=== PATIENT | male | born 2000 | race Caucasian/White ===

== ENCOUNTER 2022-05-19 10:08 | Outpatient (REF) | payer OTHER, SELFPAY ==
[2022-05-19 10:26] LABS: MANUAL DIFF FLAG NO
[2022-05-19 10:54] LABS: Basophils Percent Auto 0.7 % (0-2); Eosinophils Absolute Auto 0.2 X10*3/uL (0.0-0.4); Eosinophils Percent Auto 3.8 % (0-4); Hematocrit 45.1 % (42.0-52.0); Hemoglobin 15.2 g/dl (14.0-18.0); Imm Gran Abs Auto 0.03 X10*3/uL (0.00-0.03); Imm Gran Pct Auto 0.5 % (0.0-0.4); Lymphocytes Absolute Auto 1.9 X10*3/uL (1.2-4.9); Mean Corpuscular HGB Conc 33.7 g/dl (31.0-36.0); Mean Corpuscular Hemoglobin 28.9 pg (27.0-33.0); Mean Corpuscular Volume 85.7 fL (80.0-98.0); Mean Platelet Volume 9.5 fL (9.4-12.4); Monocytes Absolute Auto 0.5 X10*3/uL (0.1-1.2); Monocytes Percent Auto 7.6 % (2-11); Neutrophils Absolute Auto 3.4 x10*3/uL (2.0-8.3); Neutrophils Percent Auto 56.4 % (45-73); Platelet Count 294 X10*3/uL (160-400); Red Blood Count 5.26 X10*6/uL (4.60-5.80); Red Cell Distribution Width 12.2 % (11.0-16.0); White Blood Count 6.1 X10*3/uL (4.8-10.8)
[2022-05-19 11:56] LABS: Alanine Aminotransferase 16 U/L (0-40); Albumin Level 4.5 g/dL (3.5-5.0); Alkaline Phosphatase 73 U/L (39-117); Anion Gap 14 (12-20); Aspartate Amino Transferase 18 U/L (5-37); Bilirubin Direct 0.3 mg/dL (0.0-0.5); Blood Urea Nitrogen 13 mg/dL (9-16); Calcium 9.7 mg/dL (8.4-10.2); Carbon Dioxide 29 mmol/L (22-29); Chloride 103 mmol/L (96-108); Cholesterol 150 mg/dL; Estimated Glomerular Filt Rate > 60; Glucose Fasting 89 mg/dL (60-99); HDL Cholesterol 49 mg/dL; LDL Cholesterol Calculated 84 mg/dl; Potassium 4.8 mmol/L (3.3-5.1); Sodium 141 mmol/L (135-145); Total Protein 7.3 g/dL (6.5-8.0); Triglycerides 87 mg/dL
[2022-05-19 12:13] LABS: Cortisol Random 12.4 ug/dL
[2022-05-27 15:34] LABS: Testosterone, Free 96.2 pg/mL (35.0-155.0); Testosterone, Total 637 ng/dL (250-1100)
== END 2022-05-19 10:09 | disposition home or self-care (01) ==
LOC: HO.LAB 10:08
PROVIDERS: PCP Pediatrics; Visit Provider Urology
DX: R53.83 Other fatigue (principal)
CPT/HCPCS: 36415; 80048; 80061; 80076; 82533; 84402; 84403; 85025

== ENCOUNTER 2023-08-25 14:25 | Outpatient (AMB) | payer OTHER, SELFPAY ==
--- NOTE | 2023-08-25 14:28 | A.OFFPC_ITS ---
Vital Signs 08/25/23 14:36 Height 6 ft 6.74 in Weight 253 lb 4 oz BMI 28.7 BP 118/68 Blood Pressure Location Lt brachial Position Sitting Pulse 70 Pulse Source Pulse Oximeter Pulse Oximetry (%) 97 Oxygen Delivery Method Room Air Intake Visit Reasons: Establish care for ADHD Intake Note: Patient is a new patient here to establish care for ADHD. Transferring care from Dr. Ron Arita MD/[facility]. Medical records have been requested and received. Car Rental Clerk Required: No Accompanied by: Self / Same As Patient Allergies cats Allergy (Unknown, Uncoded 08/25/23 14:43) rash Medication List - Last Reconciled 08/25/23 by Raymundo Brar PA-C dextroamphetamine-amphetamine 20 mg ER 1 cap PO BID Tobacco use date assessed: 08/25/23 Dental Screening Dental Screen Date: 08/25/23 Did you have a dental visit in the last 12 months?: No Did you have a dental problem in the last 6 months where you did not have access to dental care?: No Was dental information given to patient?: Patient has dentist HPI Establish care for ADHD HPI Details Patient is a 23 year old male here today for a new patient visit. Patient has a past medical history significant for ADHD and has been treated with Adderall 20 mg b.i.d. for quite some time. He reports he does well on this medication is able to focus on work and school tasks. Going to school at [employer] and will be starting his senior year this fall 2023. Vaccines: Needs Tdap though declines at this time, up-to-date with COVID vaccines Labs reviewed from 2022 with patient and all were within normal range [facility] Medical History Attention deficit disorder of adult with hyperactivity Social History (Updated 08/25/23 @ 14:47 by Raymundo Brar PA-C) Housing: House Alcohol intake: current Alcohol intake frequency: a few times a month Alcohol type: beer Patient Tobacco Use Status: Never used Tobacco e-Cigarette/Vaping Use: Former Use service: No Current occupational status: student Cognitive needs: No Hearing needs: No Vision needs: No Questionnaire PHQ-9 Over the last 2 weeks, how often have you been bothered by any of the following problems? 1. Little interest or pleasure in doing things: not at all 2. Feeling down, depressed, or hopeless: not at all 3. Trouble falling or staying asleep, or sleeping too much: not at all 4. Feeling tired or having little energy: not at all 5. Poor appetite or overeating: not at all 6. Feeling bad about yourself - or that you are a failure or have let yourself or your family down: not at all 7. Trouble concentrating on things, such as reading the newspaper or watching television: not at all 8. Moving or speaking so slowly that other people could have noticed. Or the opposite - being so fidgety or restless that you have been moving around a lot more than usual: not at all 9. Thoughts that you would be better off or of hurting yourself in some way: not at all Total score: 0 Depression Screening Interpretation: Negative Depression Screening Done: Yes 47319 - PHQ-9 Billing: Yes Source: Developed by Drs. Timo Maya, Norma Conway, Satish Mccullough and colleagues, with an educational celine from [employer]. Thrive Questionnaire Date Thrive assessed: 08/25/23 I am a: Patient What is your living situation today?: I have a steady place to live Within the past 12 months, did the food you bought not last and you didn't have the money to get more?: Never true Within the past 12 months, did you worry whether your food would run out before you got money to buy more?: Never true Do you have trouble paying for medicines?: No Do you have trouble getting transportation to medical appointments?: No Do you have trouble paying your heating and electricity bill?: No Do you have trouble taking care of your child, family member or friend?: No Do you have trouble with day-to-day activities such as bathing, preparing meals, shopping, managing finances, etc.?: No Are you currently unemployed and looking for a job?: No Are you interested in more education?: No Please select the resources that you would like help with: None Currently or been in a relationship where the following occur: no concerns reported THRIVE Score: 0 AUDIT C Alcohol Use Questionnaire (AUDIT-C) 1. How often do you have a drink containing alcohol?: Monthly or less 2. How many drinks containing alcohol do you have on a typical day when you are drinking?: 3 or 4 3. How often do you have six or more drinks on one occasion?: Less than monthly Total Score: 3 CARL-7 AMB Questionnaire CARL-7 Date CARL - 7 assessed: 08/25/23 Feeling nervous, anxious, or on edge: 0 = Not at all Not being able to stop or control worryin = Not at all Worrying too much about different things: 0 = Not at all Trouble relaxin = Not at all Being so restless that it is hard to sit still: 0 = Not at all Becoming easily annoyed or irritable: 0 = Not at all Feeling afraid as if something awful might happen: 0 = Not at all Total CARL-7 score (0-4 normal; 5-9 mild; 10-14 moderate; 15-21 severe): 0 Source: Developed by Drs. Timo Maya, Norma Conway, Satish Mccullough and colleagues, with an educational celine from [employer]. CARL-7 Assessment Billing CARL-7 Assessment Tool: CARL-7 Assessment 01736 Review of Systems Const Denies headache(s) Eyes Denies loss of vision ENT Denies vertigo, Denies dizziness, Denies headache(s) and Denies sore throat Card Denies chest pain, Denies leg edema and Denies lightheadedness Resp Denies cough, Denies hemoptysis and Denies wheezing GI Denies abdominal pain, Denies melena, Denies constipation, Denies diarrhea and Denies vomiting Denies dysuria, Denies urinary frequency and Denies urinary urgency Musc Denies arthralgias, Denies joint swelling, Denies numbness and Denies tingling Neuro Denies Abnormal speech present, Denies behavioral changes, Denies vertigo, Denies dizziness, Denies headache(s), Denies loss of vision, Denies memory loss, Denies numbness and Denies tingling Psych Denies anxiety, Denies behavioral changes, Denies depression, Denies memory loss and Denies panic attacks Brant/Lymph Denies easy bleeding and Denies easy bruising Aller/Immun Denies wheezing Physical exam (Primary Care) Vital Signs: Last Vital Signs Pulse 70 08/25/23 14:36 BP 118/68 08/25/23 14:36 Pulse Ox 97 08/25/23 14:36 Oxygen Delivery Method Room Air 08/25/23 14:36 BMI result Body Mass Index 28.7 Tobacco/Smoking Status: Tobacco use Status Tobacco use date assessed 08/25/23 08/25/23 14:41 Patient Tobacco Use Status Never used Tobacco 08/25/23 14:47 e-Cigarette/Vaping Use Former Use 08/25/23 14:47 PHQ-9: PHQ-9 Score PHQ-9: Total score 0 08/25/23 14:48 Depression Screening Interpretation: Negative Thrive Assessment: Date of Thrive Assessment Date Thrive assessed 08/25/23 08/25/23 14:41 Currently or been in a relationship where the following occur: no concerns reported Const General: healthy appearing, no acute distress, alert and awake Nutritional Appearance: well nourished Orientation/consciousness: oriented to person, oriented to place and oriented to time HENMT Ears: TM's normal bilaterally General nose exam: Normal nasal mucous membranes and turbinates present Eyes Conjunctivae: conjunctivae normal Sclerae: sclerae normal Pupils: Equal, round and reactive pupils present Neck Neck: Yes no lymphadenopathy and Yes no JVD Thyroid: Thyroid normal Carotids: no bruits Resp Effort & Inspection: normal respiratory effort and not tachypneic Auscultation: no crackles, no rales, no rhonchi and no wheezes Cardio Rate: regular rate Rhythm: regular rhythm Heart sounds: no murmurs and normal S1 and S2 GI Palpation (GI): Soft to palpation, nontender, no hepatomegaly and no splenomegaly Auscultation: normal bowel sounds Skin General skin exam: no rashes or lesions noted and dry skin Neuro General: oriented to person, oriented to place and oriented to time Cranial nerves: Yes Equal, round and reactive pupils present Speech: No Abnormal speech present Gait exam (Neuro): Normal gait present Motor exam (neuro): no tremor noted Extrem Right upper extremity: full ROM Left upper extremity: full ROM Right lower extremity: full ROM; no edema Left lower extremity: full ROM; no edema Psych Mental Status: mental status grossly normal Speech and movement: Normal speech and movement present Affect: normal affect Attitude: cooperative Thought process: Normal thought process present Assessment and Plan Assessment & Plan (1) ADHD: Code(s): F90.9 - Attention-deficit hyperactivity disorder, unspecified type Qualifiers: Attention deficit-hyperactivity disorder type: predominantly inattentive Qualified Code(s): F90.0 - Attention-deficit hyperactivity disorder, predominantly inattentive type Plan: Patient diagnosed with ADHD is a child. Has been on Adderall with good effect for many years. Now in adult Medicine practice in needs PCP to manage his ADHD medication. He is going to be a senior at [employer] next year would like to continue medication (2) Screening for diabetes mellitus (DM): Code(s): Z13.1 - Encounter for screening for diabetes mellitus Orders: Orders Comprehensive [place]. Panel Fast Today Z13.1 - Encounter for screening for diabetes mellitus Medications: New dextroamphetamine-amphetamine 20 mg ER 1 cap PO BID 60 caps 0RF 30 days F90.0 - Attention-deficit hyperactivity disorder, predominantly inattentive type Coding Level of Care Code New Pt Level 4 (61969) Diagnoses Attention deficit hyperactivity disorder (ADHD), predominantly inattentive type F90.0 Attention deficit-hyperactivity disorder type: predominantly inattentive Screening for diabetes mellitus (DM) Z13.1 Additional Codes CARL-7 Assessment Billing - CARL-7 Assessment Tool: CARL-7 Assessment 22911 ([id number])
[2023-08-25 14:36] VITALS: BP 118/68; PULSE 70; O2SAT 97; BMI 28.7
== END 2023-08-25 14:57 | disposition home or self-care (01) ==
PROVIDERS: PCP Physician Assistant; Visit Provider Physician Assistant
DX: F90.0 Attention-deficit hyperactivity disorder, predominantly inattentive type (principal)
CPT/HCPCS: 99204

== ENCOUNTER 2023-11-03 15:01 | Outpatient (AMB) | payer OTHER, SELFPAY ==
--- NOTE | 2023-11-03 15:08 | MHC.PC.OV ---
Vital Signs 11/03/23 15:25 Height 6 ft 6.74 in Weight 256 lb 6 oz BMI 29.1 BP 114/62 Blood Pressure Location Lt brachial Position Sitting Pulse 64 Pulse Source Pulse Oximeter Pulse Oximetry (%) 96 Oxygen Delivery Method Room Air Intake Visit Reasons: 3 Month F/U Tetanus Shot Community Relations Coordinator Required: No Accompanied by: Self / Same As Patient Allergies cats Allergy (Unknown, Uncoded 11/03/23 15:28) rash Medication List - Last Reconciled 11/03/23 by Raymundo Brar PA-C dextroamphetamine-amphetamine 20 mg ER 1 cap PO BID 30 days Tobacco use date assessed: 08/25/23 Dental Screening Dental Screen Date: 08/25/23 HPI 3 Month F/U Tetanus Shot HPI Details Patient is a 23 year old male here today for a follow-up visit. Patient has a past medical history significant for ADHD and has been treated with Adderall 20 mg b.i.d. for quite some time. He reports he does well on this medication is able to focus on work and school tasks. Going to school at [employer] and will be starting his senior year this fall 2023. Vaccines: Needs Tdap , up-to-date with COVID vaccines [facility] Medical History Attention deficit disorder of adult with hyperactivity Social History Housing: House Alcohol intake: current Alcohol intake frequency: a few times a month Alcohol type: beer Patient Tobacco Use Status: Never used Tobacco e-Cigarette/Vaping Use: Former Use service: No Current occupational status: student Cognitive needs: No Hearing needs: No Vision needs: No Questionnaire Thrive Questionnaire Date Thrive assessed: 08/25/23 CARL-7 AMB Questionnaire CARL-7 Date CARL - 7 assessed: 08/25/23 Source: Developed by Drs. Timo Maya, Norma Conway, Satish Mccullough and colleagues, with an educational celine from [employer]. Review of Systems Const Denies headache(s) Eyes Denies loss of vision ENT Denies vertigo, Denies dizziness, Denies headache(s) and Denies sore throat Card Denies chest pain, Denies leg edema and Denies lightheadedness Resp Denies cough, Denies hemoptysis and Denies wheezing GI Denies abdominal pain, Denies melena, Denies constipation, Denies diarrhea and Denies vomiting Denies dysuria, Denies urinary frequency and Denies urinary urgency Musc Denies arthralgias, Denies joint swelling, Denies numbness and Denies tingling Neuro Denies Abnormal speech present, Denies behavioral changes, Denies vertigo, Denies dizziness, Denies headache(s), Denies loss of vision, Denies memory loss, Denies numbness and Denies tingling Psych Denies anxiety, Denies behavioral changes, Denies depression, Denies memory loss and Denies panic attacks Brant/Lymph Denies easy bleeding and Denies easy bruising Aller/Immun Denies wheezing Physical exam (Primary Care) Vital Signs: Last Vital Signs Pulse 64 11/03/23 15:25 BP 114/62 11/03/23 15:25 Pulse Ox 96 11/03/23 15:25 Oxygen Delivery Method Room Air 11/03/23 15:25 BMI result Body Mass Index 29.1 Tobacco/Smoking Status: Tobacco use Status Tobacco use date assessed 08/25/23 11/03/23 15:08 Patient Tobacco Use Status Never used Tobacco 11/03/23 15:08 e-Cigarette/Vaping Use Former Use 11/03/23 15:08 Thrive Assessment: Date of Thrive Assessment Date Thrive assessed 08/25/23 11/03/23 15:08 Const General: healthy appearing, no acute distress, alert and awake Nutritional Appearance: well nourished Orientation/consciousness: oriented to person, oriented to place and oriented to time HENVA Ears: TM's normal bilaterally General nose exam: Normal nasal mucous membranes and turbinates present Eyes Conjunctivae: conjunctivae normal Sclerae: sclerae normal Pupils: Equal, round and reactive pupils present Neck Neck: Yes no lymphadenopathy and Yes no JVD Thyroid: Thyroid normal Carotids: no bruits Resp Effort & Inspection: normal respiratory effort and not tachypneic Auscultation: no crackles, no rales, no rhonchi and no wheezes Cardio Rate: regular rate Rhythm: regular rhythm Heart sounds: no murmurs and normal S1 and S2 GI Palpation (GI): Soft to palpation, nontender, no hepatomegaly and no splenomegaly Auscultation: normal bowel sounds Skin General skin exam: no rashes or lesions noted and dry skin Neuro General: oriented to person, oriented to place and oriented to time Cranial nerves: Yes Equal, round and reactive pupils present Speech: No Abnormal speech present Gait exam (Neuro): Normal gait present Motor exam (neuro): no tremor noted Extrem Right upper extremity: full ROM Left upper extremity: full ROM Right lower extremity: full ROM; no edema Left lower extremity: full ROM; no edema Psych Mental Status: mental status grossly normal Speech and movement: Normal speech and movement present Affect: normal affect Attitude: cooperative Thought process: Normal thought process present Immunizations Boostrix Tdap 2.5 Lf unit-8 mcg-5 Lf/0.5 mL intramuscular syringe Performing Provider: Raymundo Brar PA-C Performing Location: [facility] Administered by: FREDDY Sethi on 11/03/23 15:37 Dose Route Admin Location Dispensed Lot Number Expiration Date NDC Historical Site Guide 0.5 mL IM Left Deltoid 0.5 mL [id number] 11/11/25 [id number] [employer] VIS Given Date VIS Provided VIS Publication Date 11/03/23 Single Vaccine 20 Eligibility Eligibility Date Funding Source Not VF Eligible 11/03/23 Private Assessment and Plan Assessment & Plan (1) ADHD: Code(s): F90.9 - Attention-deficit hyperactivity disorder, unspecified type Qualifiers: Attention deficit-hyperactivity disorder type: predominantly inattentive Qualified Code(s): F90.0 - Attention-deficit hyperactivity disorder, predominantly inattentive type Plan: Patient diagnosed with ADHD is a child. Has not executive functioning dysfunction. Has been on Adderall with good effect for many years. . He is going to be a senior at [employer] next year would like to continue medication Orders: Orders TDaP Immunization Today Z23 - Encounter for immunization Medications: Refilled dextroamphetamine-amphetamine 20 mg ER 1 cap PO BID 60 caps 0RF 30 days F90.0 - Attention-deficit hyperactivity disorder, predominantly inattentive type Coding Level of Care Code Est Pt Level 3 (58295) Diagnoses Attention deficit hyperactivity disorder (ADHD), predominantly inattentive type F90.0 Attention deficit-hyperactivity disorder type: predominantly inattentive
[2023-11-03 15:25] VITALS: BP 114/62; PULSE 64; O2SAT 96; BMI 29.1
== END 2023-11-03 15:39 | disposition home or self-care (01) ==
PROVIDERS: PCP Physician Assistant; Visit Provider Physician Assistant
DX: Z23 Encounter for immunization (principal); F90.0 Attention-deficit hyperactivity disorder, predominantly inattentive type
CPT/HCPCS: 90471; 90715; 99213

== ENCOUNTER 2024-02-06 15:14 | Outpatient (AMB) | payer OTHER, SELFPAY ==
--- NOTE | 2024-02-06 15:12 | A.OFFPC_ITS ---
Intake Visit Reasons: f/u ADHD (telehealth) Correctional Officer Sergeant Required: No Accompanied by: Self / Same As Patient Allergies cats Allergy (Unknown, Uncoded 02/06/24 15:18) rash Medication List - Last Reconciled 02/06/24 by Raymundo Brar PA-C dextroamphetamine-amphetamine 20 mg ER 1 cap PO BID 30 days Tobacco use date assessed: 08/25/23 Dental Screening Dental Screen Date: 08/25/23 HPI f/u ADHD (telehealth) HPI Details Patient is a 23-year-old male being evaluated today via telephone. Patient has a past medical history significant for ADHD and has been treated with Adderall 20 mg b.i.d. for quite some time. He reports he does well on this medication is able to focus on work and school tasks. He reports school is tough this semester as he is in his senior year. He has been having some anxiety [facility] Medical History Attention deficit disorder of adult with hyperactivity Social History Housing: House Alcohol intake: current Alcohol intake frequency: a few times a month Alcohol type: beer Patient Tobacco Use Status: Never used Tobacco e-Cigarette/Vaping Use: Former Use service: No Current occupational status: student Cognitive needs: No Hearing needs: No Vision needs: No Questionnaire Thrive Questionnaire Date Thrive assessed: 08/25/23 CARL-7 AMB Questionnaire CARL-7 Date CALR - 7 assessed: 08/25/23 Source: Developed by Drs. Timo Maya, Norma Conway, Satish Mccullough and colleagues, with an educational celine from [employer]. Review of Systems Const Denies headache(s) Eyes Denies loss of vision ENT Denies vertigo, Denies dizziness, Denies headache(s) and Denies sore throat Card Denies chest pain, Denies leg edema and Denies lightheadedness Resp Denies cough, Denies hemoptysis and Denies wheezing GI Denies abdominal pain, Denies melena, Denies constipation, Denies diarrhea and Denies vomiting Denies dysuria, Denies urinary frequency and Denies urinary urgency Musc Denies arthralgias, Denies joint swelling, Denies numbness and Denies tingling Neuro Denies behavioral changes, Denies vertigo, Denies dizziness, Denies headache(s), Denies loss of vision, Denies memory loss, Denies numbness and Denies tingling Psych Reports anxiety, Denies behavioral changes, Denies depression, Denies memory loss and Denies panic attacks Brant/Lymph Denies easy bleeding and Denies easy bruising Aller/Immun Denies wheezing Physical exam (Primary Care) Tobacco/Smoking Status: Tobacco use Status Tobacco use date assessed 08/25/23 02/06/24 15:14 Patient Tobacco Use Status Never used Tobacco 02/06/24 15:14 e-Cigarette/Vaping Use Former Use 02/06/24 15:14 Thrive Assessment: Date of Thrive Assessment Date Thrive assessed 08/25/23 02/06/24 15:14 Telehealth Telehealth Telehealth Platform: Telephone Location of provider rendering services: practice address Location of patient: address on file Patient Identification confirmed using: Name, : Yes Telehealth method: voice only Patient verbally consented to treatment: Yes Patient verbally consented to billing insurance company: Yes Patient informed of any privacy concerns related to visit: Yes Minutes spent on Phone/Video with Pt.: 9 Coding Level of Care Code Tele Est Pt Level 3 (99453) Diagnoses Attention deficit hyperactivity disorder (ADHD), predominantly inattentive type F90.0 Attention deficit-hyperactivity disorder type: predominantly inattentive CARL (generalized anxiety disorder) F41.1 Assessment & Plan Assessment & Plan (1) ADHD: Code(s): F90.9 - Attention-deficit hyperactivity disorder, unspecified type Category: Medical Qualifiers: Attention deficit-hyperactivity disorder type: predominantly inattentive Qualified Code(s): F90.0 - Attention-deficit hyperactivity disorder, predominantly inattentive type Plan: As per HPI, patient continues with Adderall which works well for his attention and focus on school. Otherwise denies any side effects (2) CARL (generalized anxiety disorder): Code(s): F41.1 - Generalized anxiety disorder Category: Medical Plan: As per HPI patient reports he has been suffering with some anxiety symptoms lately. He feels his due to being in senior year in college. Will reach out if his anxiety gets much worse. Will consider cognitive behavioral therapy. Medications: Refilled dextroamphetamine-amphetamine 20 mg ER 1 cap PO BID 60 caps 0RF 30 days F90.0 - Attention-deficit hyperactivity disorder, predominantly inattentive type
== END 2024-02-06 15:47 | disposition home or self-care (01) ==
LOC: HO.HMCH 15:14
PROVIDERS: PCP Physician Assistant; Visit Provider Physician Assistant
DX: F90.0 Attention-deficit hyperactivity disorder, predominantly inattentive type (principal); F41.1 Generalized anxiety disorder

== ENCOUNTER → 2024-02-06 15:14 | Outpatient (BNVA) | payer OTHER, SELFPAY | PROVIDERS: PCP Physician Assistant; Visit Provider Physician Assistant ==

== ENCOUNTER 2024-06-30 12:51 | Outpatient (AMB) | payer OTHER, SELFPAY ==
--- OUTSIDE RECORDS SUMMARY | 2024-06-30 12:53 | XMS_ITS | Clinical Summary ---
Author Organization [facility] Address [address] [place] [address] Care Team Providers Care Bagging Machine Operator Name Role Phone Raymundo Brar Primary Care Provider + Allergies No known active allergies Social History Tobacco Use Types Packs/Day Years Used Date Smoking Tobacco: Never Assessed Sex and Gender Information Value Date Recorded Sex Assigned at Male 01/16/2024 6:53 PM EDT Gender Identity Male 01/16/2024 6:53 PM EDT Sexual Orientation Heterosexual (straight) 01/15 6:53 PM EDT Last Filed Vital Signs Vital Sign Reading Time Taken Comments Blood Pressure 140/61 01/16/2024 7:14 PM EDT Pulse 112 01/16/2024 7:14 PM EDT Temperature 36.4 ??C (97.6 ??F) 01/16/2024 6:13 PM ED T Respiratory Rate 18 01/16/2024 7:14 PM EDT Oxygen Saturation 97% 01/16/2024 7:14 PM EDT Inhaled Oxygen Concentration - - Weight - - Height - - Body Mass Index - - Plan of Treatment Health Maintenance Due Date Last Done Comments Hepatitis C Virus Screening 2001 HIV Screening 2014 HPV Vaccines (1 - Male 3-dos e series) 2016 DTaP/Tdap/Td Vaccines (1 - Tdap) 2020 Hepatitis B Vaccines (1 of 3 - 19+ 3-dose series) 2020 Influenza Vaccine 10/27/2023 COVID-19 Vaccine ( - 2023-2 5 season) 2023 Pneumococcal Vaccine: Pediat theo (0-5 Years) and At-Risk Patients (6 to 49 Years) Aged Out No longer eligible b ased on patient's age to complete this topic Care Teams Bagging Machine Operator Relationship Specialty Start Date End Date Raymundo Brar PA [address] [place] [id number] PCP - General Adult Health - DENNIS/WESLY/RIBBON HANKING MACHINE OPERATOR/RATINGS ANALYST 01/16/24
--- OUTSIDE RECORDS SUMMARY | 2024-06-30 12:53 | XMS_ITS ---
Author Name [facility] Organization Unknown Results Test Name/Text Value Interpretation Date Range Source POC Glucose 129mg/dL Above high normal [id number] 65 - 99 [facility] History of Medication Use Medication Directions Dispensed Refills Start Date End Date Stat cefprozil 500 mg tablet Take 1 tablet twice a day by oral route for 10 days. Take 1 tablet twice a day by oral route for 10 days. completed Problems Problem Status Onset Date Problem Type Date of Resoluti on Source Increased body mass index active ProblemAct [facility] History of SARS-CoV-2 active 2021-07-23 ProblemAct [facility] Attention deficit hyperactivity disorder active 2017-09-21 ProblemAct [facility] [employer] Well child active ProblemAct [facility] Immunizations Vaccine Date Source Lot Number Status meningococcal B, OMV 12/25/2018 [facility] [id number] comp leted DTaP, unspecified formulation 07/04/2006 [facility] completed DTaP-Hep B-IPV 2001 [facility] completed influenza, live, intranasal, quadrivalent 12/19/2013 [facility] [employer] [id number] completed HPV9 02/24/2017 [facility] [id number] completed HPV9 12/16/2016 [facility] [id number] completed novel [id number], nasal 02/13/2009 [facility] [id number] 4p completed meningococcal MCV4P 12/19/2017 [facility] [id number] compl eted pneumococcal conjugate PCV 7 01/11/2002 [facility] completed IPV 07/04/2006 [facility] completed Hib, unspecified formulation 2001 [facility] completed HPV9 06/28/2017 [facility] [id number] completed influenza, injectable, quadr ivalent, preservative free 01/06/2015 [facility] [id number] completed varicella 07/04/2006 [facility] completed Hib, unspecified formulation 07/20/2002 [facility] completed varicella 04/13/2002 [facility] completed DTaP-Hep B-IPV 2001 [facility] completed Hib, unspecified formulation 2001 [facility] completed meningococcal MCV4P 09/29/2012 [facility] [id number] compl eted meningococcal B, OMV 01/30/2019 [facility] [id number] comp leted Hep B, unspecified formulation 2001 [facility] completed influenza, injectable, quadr ivalent, preservative free 12/16/2016 [facility] [id number] completed DTaP, unspecified formulation 07/20/2002 [facility] completed Tdap 09/29/2012 [facility] [id number] completed influenza, injectable, quadrivalent 11/26/2019 [facility] completed DTaP-Hep B-IPV 2001 [facility] completed MMR 04/13/2002 [facility] completed Hib, unspecified formulation 2001 [facility] completed influenza, injectable, quadr ivalent, preservative free 12/19/2017 [facility] [id number] completed influenza, injectable, quadr ivalent, preservative free 02/18/2021 [facility] [id number] completed influenza, injectable, quadr ivalent, preservative free 01/24/2013 [facility] [id number] completed MMR 07/04/2006 [facility] completed COVID-19, mRNA, LNP-S, PF, 3 0 mcg/0.3 mL dose ([facility]) 03/19/2021 [facility] completed Encounters Encounter Type Encounter Reason Primary Diagnosis Location Date Emergency Cocaine abuse, uncomplicated Cocaine abuse, uncomplicated [facility] 01/16/2024 Ambulatory Attention-deficit hyperactivity disorder, unspecified type Attention-deficit hyperactivity disorder, unspecified type [facility] 05/23/2023 Ambulatory [facility] 08/25/2022 Ambulatory [facility] 05/04/2022 Emergency Pain in unspecif ied shoulder [facility] 01/09/2022 Ambulatory [facility] 08/25/2021 Ambulatory [facility] 07/24/2021 Ambulatory [facility] 07/22/2021 Ambulatory Other tear of me dial meniscus, current injury, left knee, initial encounter [facility] 04/30/2021 Ambulatory [facility] 03/24/2021 Ambulatory [facility] 02/18/2021 Care Team Organization Name Specialty Phone Email Start Date End Da te [facility] Primary [facility] 01/17/2024 [facility] P[facility]No Primary Care 01/09/2022 06/13/2024 [facility] 08/25/2021 [facility] NO P[facility] Primary Care 04/30/2021 01/09/2022 [facility] 11/17/2020 08/25/2021
--- NOTE | 2024-06-30 12:54 | AM.OFFWIN_ITS ---
Intake Vital Signs 06/30/24 13:02 Height 6 ft 6 in BP 118/70 Blood Pressure Location Lt brachial Position Sitting Pulse 67 Pulse Source Pulse Oximeter Temp 98.4 F Temp Source Oral Pulse Oximetry (%) 97 Oxygen Delivery Method Room Air Intake Visit Reasons: EP-Difficulty swallowing Patient Tobacco Use Status: Never used Tobacco Allergies cats Allergy (Unknown, Uncoded 06/30/24 13:22) rash Medication List - Last Reconciled 06/30/24 by Michelle Ramirez, [employer] SE[employer]ING [employer]OCIATE- dextroamphetamine-amphetamine 20 mg ER 1 cap PO BID 30 days gabapentin 300 mg PO BEDTIME 30 days Do you need a note to return to daycare/school/sports/work: Yes HPI HPI Comments History of Present Illness Details PCP: Lion Brar History 24-year-old male here today with reports of a sore throat and trouble swallowing. He reports that around 16:00 on he started to develop an increase in indigestion. Reports that he has a longstanding history of GERD which is exacerbated by stress. Reports that he was under a great deal of stress as he will be graduating from school in 1 month. He also admits stress related to the current political climate. He will be moving to [place] until things calm down here in the [place] Be that as it may, he reports that he has irritation in the back of his throat he feels like there is air trapped into his chest. He is able to eat and drink he was able to manage his secretions. He denies any fever, chill, chest pain. He does report some occasional dry heaves Has been using cough drops which has not really provided a great deal of benefit. Previously for his GERD he has used Tums and Pepto without relief. Physical Exam General: Awake, alert. No apparent distress Eyes: Sclera and conjunctiva clear bilaterally Nose: Nares patent Throat: + erythema, no exudate, uvula midline, tonsils normal, posterior cobblestoning; no drooling. No ac adenopathy; no hot potatoe voice Chest: no costochondral tenderness Cardiovascular: Regular rate and rhythm Respiratory: Clear to auscultation bilaterally Results Discussion Notes During our discussion, I explained the likelihood of gastroesophageal reflux disease (GERD) contributing to the patient's symptoms. I discussed the potential benefits of starting omeprazole. I advised taking the medication daily in the morning on an empty stomach to maximize its effectiveness. Additionally, I suggested avoiding coffee, which may be aggravating the symptoms. We also discussed adhering to the medication regimen for four to six weeks, including a plan for a follow-up to assess the effectiveness of treatment. A prescription was electronically sent to the patient's preferred [facility] pharmacy. Assessment and Plan 1. Dysphagia: The dysphagia is likely du e to GERD. Omeprazole, effective for acid suppression, is prescribed to alleviate symptoms. Proper administration was reviewed, recommending intake on an empty stomach each morning. Regular use is advised, with plans to review its efficacy after a duration. 2. Gastroesophageal Reflux Disease (GERD ): This chronic condition contributes significantly to the patient's symptoms. We discussed start of omeprazole, a proton pump inhibitor, for long-term gastric acid management. Lifestyle changes like coffee cessation were considered essential complements to pharmacotherapy. Patient Instructions - Begin taking omeprazole daily each mor ag on an empty stomach with a sip of water and wait 30 minutes before eating or taking other medications. - Avoid coffee as it may worsen your sym ptoms. - Follow up if experienced symptoms do n ot improve in four to six weeks or worsen. Consent Patient was informed and verbally consented to the use of an ambient scribe for clinic note documentation during this visit. [facility] Medical History Attention deficit disorder of adult with hyperactivity Social History Housing: House Alcohol intake: current Alcohol intake frequency: a few times a month Alcohol type: beer Patient Tobacco Use Status: Never used Tobacco e-Cigarette/Vaping Use: Former Use service: No Current occupational status: student Cognitive needs: No Hearing needs: No Vision needs: No Physical Exam Vital Signs: Last Vital Signs Temp 98.4 F 06/30/24 13:02 Pulse 67 06/30/24 13:02 BP 118/70 06/30/24 13:02 Pulse Ox 97 06/30/24 13:02 Oxygen Delivery Method Room Air 06/30/24 13:02 Assessment & Plan Assessment & Plan (1) GERD with esophagitis: Code(s): K21.00 - Gastro-esophageal reflux disease with esophagitis, without bleeding Qualifiers: Esophagitis bleeding: without hemorrhage Qualified Code(s): K21.00 - Gastro-esophageal reflux disease with esophagitis, without bleeding (2) CARL (generalized anxiety disorder): Code(s): F41.1 - Generalized anxiety disorder Plan . Medications: New omeprazole 20 mg PO DAILY 30 caps 1RF Coding Level of Care Code Est Pt Level 3 (12945) Diagnoses Gastroesophageal reflux disease with esophagitis without hemorrhage K21.00 Esophagitis bleeding: without hemorrhage CARL (generalized anxiety disorder) F41.1
[2024-06-30 13:02] VITALS: BP 118/70; PULSE 67; TEMP 36.9; O2SAT 97
== END 2024-06-30 13:35 | disposition home or self-care (01) ==
LOC: HO.HMCWIC 12:51
PROVIDERS: PCP Physician Assistant; Visit Provider Nurse Practitioner Family
DX: K21.00 Gastro-esophageal reflux disease with esophagitis, without bleeding (principal); F41.1 Generalized anxiety disorder